=== PATIENT | female | born 1985 | race Caucasian/White ===

== ENCOUNTER 2016-07-19 20:06 | Emergency (ER) | payer OTHER ==
--- NOTE | 2016-07-19 21:24 | ED NURSING NOTES ---
Clinical Report - Nurses [facility] [address] [place] [address] 07/19/2016 20:06 Patient: LULU OCHOA TRIAGE Triage time 20:12. Acuity: LEVEL 4. Chief Complaint: MIGRAINE HEADACHE and VOMITING (Has hx of migraines; tried multiple interventions without sucess, says neurologist "wants to put Botox in the back on my head but my insurance won't cover it; they think the cause of my migraines are this cysts I have. I get about 1 a month and usually able to just fight through it and deal with but this one I can't; I went to the walk-in at [facility] but there was pretty much nothing they could do so now I am here." Aggravating factors include light, touch to my head; Alleviating factors: none. Migraine is on L side radiating to back, she describes "this is where my migraines typically are but this one hurts pretty good." Reports son is sick at home.). Alert. No acute distress. SEPSIS SCREEN: Sepsis Screen: negative. Negative (no infection suspected/documented). --20:19 Brijesh Moncada R.N. 20:12 07/19/16. BP: 156/91 (large adult cuff) taken on the left arm, via an automated monitor, while lying. HR: 80 (normal rate). RR: 18 (regular, unlabored and normal). O2 saturation: 98% on room air. Temp: 99.6 F (oral). Pain level now: 01/04. --20:19 Brijesh Moncada R.N. Weight: 154.2 kg stated. Height/Length: 66 inches Per Patient. BMI: 54.9. --20:15 Brijesh Moncada R.N. Medications None. --20:16 Brijesh Moncada R.N. Medication/allergy information source: the patient. --20:19 Brijesh Moncada R.N. Allergies Butalbital. Topamax.(itching) --20:16 Brijesh Moncada R.N. History Arrived by private vehicle. Historian: patient. Accompanied by spouse. Primary physician (Dr. Nguyen (neurologist)). This started about 4 days ago. She has had nausea, vomiting. The vomiting has occurred twice and photophobia. No sinus pain, chills, fever, sweating episodes or ear pain. No sore throat, chest pain or difficulty breathing. Denies muscle aches or poor appetite. PAST MEDICAL HX: Last normal menstrual period- July 12, 2016. SOCIAL HX: Smoker- current status unknown. Occasional alcohol use. History of occasional drug use: marijuana. Recently used drugs days ago. She has not traveled outside the [place] The patient was not exposed to MRSA. No infectious disease exposure. ABUSE ASSESSMENT: Abuse assessment: The patient was asked "Do you feel safe in your home?" and "Has anyone hurt you or threatened to hurt you?". No report of abuse. SELF HARM ASSESSMENT: A self harm assessment was performed. The patient answered "no" to the question "Do you have thoughts of harming or killing yourself?" and "Have you recently had thoughts about harming or killing others?". FALL RISK ASSESSMENT: Fall risk assessment completed. No fall risk identified. NUTRITIONAL RISK ASSESSMENT: The nutritional risk assessment revealed no deficiencies. FUNCTIONAL ASSESSMENT: Functional assessment: no impairments noted. LEARNING NEEDS ASSESSMENT: The learning needs assessment revealed no barriers. SKIN INTEGRITY ASSESSMENT: Skin integrity risk assessment completed. No skin integrity risk identified. --20:19 Brijesh Moncada R.N. PROBLEMS: Headache. URI. Pneumonia. Bronchitis. Respiratory Distress. Spontaneous (Miscarriage). . Abdominal Pain. Hypertension. Chronic Headache. Immunizations. LNMP - Last Normal Menstrual Period. Migraine Headache. --20:16 Brijesh Moncada R.N. ADDITIONAL SURGERIES: . --20:16 Brijesh Moncada R.N. Assessment GENERAL / NEURO / PSYCH: Alert. Oriented X 4. Appears in no acute distress. Deshawn Coma Scale: 15- eyes open spontaneously (4); best verbal response- oriented x 4 (5); best motor response- obeys commands (6). Patient appears calm and cooperative. RESPIRATORY: No respiratory distress. Respirations not labored. SKIN: Skin is warm and dry. --20:19 Brijesh Moncada R.N. Interventions ID band on patient. To treatment room. --20:19 Brijesh Moncada R.N. PHYSICAL ASSESSMENT Ambulatory to room. GENERAL / NEURO / PSYCH: Alert. Oriented X 4. Appears in no acute distress. Speech within normal limits. Pupillary exam: Right pupil 3mm, round and sluggishly reactive to light directly. Left pupil: 3mm, round and sluggishly reactive to light directly. HEENT: No facial asymmetry noted. Cerumen present in the right external auditory canal. Cerumen present in the left external auditory canal. (Could not visualize TMs.). No swelling of head. RESPIRATORY: No respiratory distress. Respirations not labored. Breath sounds within normal limits. CVS: Heart sounds within normal limits. Capillary refill less than 2 seconds. GI / : Obesity. Abdomen soft and nontender. SKIN: Skin is warm and dry. --20:22 Brijesh Moncada R.N. NURSING PROGRESS NOTES The initial plan of care for this patient has been created This plan of care was discussed with the patient. Reassurance given to the patient. Lights dimmed. Two patient identifiers checked. Call light placed in reach. Side rails up x 1. Bed placed in lowest position. Brakes of bed on. Patient ready for evaluation- ED physician and PA notified. --20:20 Brijesh Moncada R.N. Warming measures: blanket applied. --20:22 Brijesh Moncada R.N. 20:51 07/19/2016 Dilaudid (HYDROmorphone HCl PF) IM 2 mg given. Given in the left ventral gluteus. Allergies verified, confirmed 5 rights and sedative warning given to the patient. --20:51 Brijehs Moncada R.N. 20:52 07/19/2016 Phenergan (Promethazine HCl) IM 12.5 mg given. Given in the left ventral gluteus. Allergies verified, confirmed 5 rights and sedative warning given to the patient. --20:52 Brijesh Moncada R.N. 20:52 07/19/2016 Benadryl (DiphenhydrAMINE HCl) PO Capsules 25 mg given. Allergies verified, confirmed 5 rights and sedative warning given to the patient. --20:52 Brijesh Moncada R.N. DISPOSITION / DISCHARGE Departure time: 21:32. --21:32 Brijesh Moncada R.N. 21:33. Condition at departure: stable. The goals identified in the patient's plan of care were met. No learning barriers present. Discharge instructions provided and reviewed with the patient. Reviewed medication(s) side effects, precautions, dosing and course information. Prescription(s) given to the patient (Lulu verbalizes importance of taking all prescribed antibiotics. She verbalizes importance of not driving and/or operating heavy machinery while taking narcotics. She verbalizes safe, proper use of all prescribed pain meds for optimal pain management at home.). Activity restrictions (rest) reviewed. Patient verbalized understanding. Written instructions provided in Ukrainian. ( Lulu verbalizes understanding of all d/c instructions including need to keep wounds clean/dry and f/u with PCP for wound recheck. She has no questions and voices no concerns at this time.). The patient was discharged by the physician. She was discharged home and accompanied by parent. She left the Emergency Department ambulatory and via private vehicle. Parent driving. DESHAWN COMA SCORE: Deshawn Coma Scale: 15- eyes open spontaneously (4); best verbal response- oriented x 4 (5); best motor response- obeys commands (6). --22:08 Brijesh Moncada R.N. 21:30 07/19/16. BP: 147/92 (regular adult cuff) taken on the left arm, via an automated monitor, while sitting. HR: 71 (normal rate). RR: 16 (regular, unlabored and normal). O2 saturation: 100% on room air. Temp: 98.9 F (oral). Pain level now: 10/05. --22:08 Brijesh Moncada R.N. Locked/Released at 07/19/2016 22:09 by Brijesh Moncada R.N.
--- NOTE | 2016-07-19 21:24 | ED ORDER SUMMARY ---
..... Patient: HODA OCHOA OrderSheet [facility] VisitID: [id number] [address] [place] [address] 31y, F Registration Date/Time: 07/19/2016 ORDER SHEET Weight: 154.2 kg (stated) Allergies: Butalbital, Topamax GENERAL ORDERS: MEDICATION ORDERS: Dilaudid IM 2 mg (HIGH ALERT MEDICATION, NOW) (20:33 07/19/2016 Ra P.A.-C) (Ack 20:37 JDeElena R.N.) (20:51 JDeElena R.N.) Phenergan IM 12.5 mg (HIGH ALERT MEDICATION, NOW) (20:33 07/19/2016 Ra Lanza.A.-C) (Ack 20:37 JDeElena R.N.) (20:52 JDeElena R.N.) Benadryl PO 25 mg (NOW) (20:34 07/19/2016 Ra Lanaz.A.-C) (Ack 20:37 JDeElena R.N.) (20:52 JDeElena R.N.) IV FLUIDS: ORDER SHEET NOTES: [Electronically signed by Nadia Swift P.A.-C (21:38 07/19/2016)] [Electronically signed by Brijesh Moncada R.N. (22:09 07/19/2016)] [Electronically locked/signed by Brijesh Moncada R.N. (22:09 07/19/2016)]
--- NOTE | 2016-07-19 21:24 | ED CLINICAL REPORT ---
Clinical Report - Physicians/Mid Levels [facility] [address] [place] [address] 07/19/2016 20:06 Patient: HODA OCHOA Time Seen: 20:56 Jul 19 2016. Arrived- By private vehicle. HISTORY OF PRESENT ILLNESS Is still present. Chief Complaint: HEADACHE. This started just prior to arrival. It is described as similar to previous headaches, "pain" and throbbing. No neck pain. Not located in the facial region. Located in the occipital region. There were preceding symptoms. (Left posterior occipital headache, ongoing for the last 4-5 days, with associated nausea, light sensitivity. Reports has taken Excedrin, Motrin at all and Tylenol with no relief. History of similar migraine-like headaches, has seen neurology in the past, the thought was for her to have Botox, however her insurance will not cover for such.). REVIEW OF SYSTEMS No fever, ear pain, sore throat or abdominal pain. All systems otherwise negative, except as recorded above. PAST HISTORY History of chronic headaches. Problems: Headache. URI. Pneumonia. Bronchitis. Respiratory Distress. Spontaneous (Miscarriage). . Abdominal Pain. Hypertension. Chronic Headache. Immunizations. LNMP - Last Normal Menstrual Period. Migraine Headache. Additional Surgeries: . Medications: None. Allergies: Butalbital. Topamax.(itching). SOCIAL HISTORY Alcohol use. History of drug use: marijuana. ADDITIONAL NOTES The nursing notes have been reviewed. PHYSICAL EXAM Vital Signs: 07/19/2016 20:12 BP: 156/91. HR: 80. RR: 18. O2 saturation: 98%. Temp: 99.6 F. Pain level now: 7/10. Appearance: Alert. No acute distress. Neck: Normal inspection. No meningeal signs. CVS: Normal heart rate and rhythm. Heart sounds normal. No cardiac murmur. Respiratory: No respiratory distress. No respiratory distress. Back: Normal inspection. No CVA tenderness. Skin: Skin warm. Neuro: Oriented X 3. Mood/affect normal. Cranial nerves normal (as tested). No cerebellar findings. PROGRESS AND PROCEDURES Course of Care: pt stable in er, neuro exam negative, same ramsey she has had in the past with no new sx. Patient stable. To f/u outpatient. No neck pain, no meningeal signs/ sx. Ongoing pain for 5 days. Pt record reviwed. Patient is stable. Patient/family counseled. Differential Diagnosis: I considered vascular etiology, migraine, cluster headache, ischemic stroke, subarachnoid hemorrhage, intracranial bleed, cerebral aneurysm, vasculitis, malignant hypertension, bacterial meningitis, encephalitis, sinusitis, carbon monoxide exposure, trigeminal neuralgia, subdural hematoma, muscle tension and acute angle-closure glaucoma as a possible cause of headache in this patient. This is a partial list of diagnoses considered. Disposition: Discharged. CLINICAL IMPRESSION Chronic, poorly controlled headache. INSTRUCTIONS No alcohol. (DO NOT DRIVE). Warnings: SEDATIVE MEDICATION: You were given sedative medication during your visit. Do not drive or operate dangerous machinery. Follow-up: Follow up with a specialist. (Electronically signed by Nadia Swift P.A.-C 07/19/2016 21:38)
--- NOTE | 2016-07-19 21:24 | ED CLINICAL REPORT ---
Clinical Report - Physicians/Mid Levels [facility] [address] [place] [address] 07/19/2016 20:06 Patient: HODA OCHOA Time Seen: 20:56 Jul 19 2016. Arrived- By private vehicle. HISTORY OF PRESENT ILLNESS Is still present. Chief Complaint: HEADACHE. This started just prior to arrival. It is described as similar to previous headaches, "pain" and throbbing. No neck pain. Not located in the facial region. Located in the occipital region. There were preceding symptoms. (Left posterior occipital headache, ongoing for the last 4-5 days, with associated nausea, light sensitivity. Reports has taken Excedrin, Motrin at all and Tylenol with no relief. History of similar migraine-like headaches, has seen neurology in the past, the thought was for her to have Botox, however her insurance will not cover for such.). REVIEW OF SYSTEMS No fever, ear pain, sore throat or abdominal pain. All systems otherwise negative, except as recorded above. PAST HISTORY History of chronic headaches. Problems: Headache. URI. Pneumonia. Bronchitis. Respiratory Distress. Spontaneous (Miscarriage). . Abdominal Pain. Hypertension. Chronic Headache. Immunizations. LNMP - Last Normal Menstrual Period. Migraine Headache. Additional Surgeries: . Medications: None. Allergies: Butalbital. Topamax.(itching). SOCIAL HISTORY Alcohol use. History of drug use: marijuana. ADDITIONAL NOTES The nursing notes have been reviewed. PHYSICAL EXAM Vital Signs: 07/19/2016 20:12 BP: 156/91. HR: 80. RR: 18. O2 saturation: 98%. Temp: 99.6 F. Pain level now: 7/10. Appearance: Alert. No acute distress. Neck: Normal inspection. No meningeal signs. CVS: Normal heart rate and rhythm. Heart sounds normal. No cardiac murmur. Respiratory: No respiratory distress. No respiratory distress. Back: Normal inspection. No CVA tenderness. Skin: Skin warm. Neuro: Oriented X 3. Mood/affect normal. Cranial nerves normal (as tested). No cerebellar findings. PROGRESS AND PROCEDURES Course of Care: pt stable in er, neuro exam negative, same ramsey she has had in the past with no new sx. Patient stable. To f/u outpatient. No neck pain, no meningeal signs/ sx. Ongoing pain for 5 days. Pt record reviwed. Patient is stable. Patient/family counseled. Differential Diagnosis: I considered vascular etiology, migraine, cluster headache, ischemic stroke, subarachnoid hemorrhage, intracranial bleed, cerebral aneurysm, vasculitis, malignant hypertension, bacterial meningitis, encephalitis, sinusitis, carbon monoxide exposure, trigeminal neuralgia, subdural hematoma, muscle tension and acute angle-closure glaucoma as a possible cause of headache in this patient. This is a partial list of diagnoses considered. Disposition: Discharged. CLINICAL IMPRESSION Chronic, poorly controlled headache. INSTRUCTIONS No alcohol. (DO NOT DRIVE). Warnings: SEDATIVE MEDICATION: You were given sedative medication during your visit. Do not drive or operate dangerous machinery. Follow-up: Follow up with a specialist. (Electronically signed by Nadia Swift P.A.-C 07/19/2016 21:38)
--- NOTE | 2016-07-19 21:24 | ED ORDER SUMMARY ---
..... Patient: HODA OCHOA OrderSheet [facility] VisitID: [id number] [address] [place] [address] 31y, F Registration Date/Time: 07/19/2016 ORDER SHEET Weight: 154.2 kg (stated) Allergies: Butalbital, Topamax GENERAL ORDERS: MEDICATION ORDERS: Dilaudid IM 2 mg (HIGH ALERT MEDICATION, NOW) (20:33 07/19/2016 Ra P.A.-C) (Ack 20:37 JDeElena R.N.) (20:51 JDeElena R.N.) Phenergan IM 12.5 mg (HIGH ALERT MEDICATION, NOW) (20:33 07/19/2016 Ra Lanza.A.-C) (Ack 20:37 JDeElena R.N.) (20:52 JDeElena R.N.) Benadryl PO 25 mg (NOW) (20:34 07/19/2016 Ra Lanza.A.-C) (Ack 20:37 JDeElena R.N.) (20:52 JDeElena R.N.) IV FLUIDS: ORDER SHEET NOTES: [Electronically signed by Nadia Swift P.A.-C (21:38 07/19/2016)] [Electronically signed by Brijesh Moncada R.N. (22:09 07/19/2016)] [Electronically locked/signed by Brijesh Moncada R.N. (22:09 07/19/2016)]
--- NOTE | 2016-07-19 22:09 | ED DISCHARGE INSTRUCTIONS ---
Patient: HODA OCHOA General Instructions [facility] VisitID: [id number] [place] [address] 31y, F Registration Date/Time: 07/19/2016 Chronic, poorly controlled headache. INSTRUCTIONS No alcohol. (DO NOT DRIVE). Warnings: SEDATIVE MEDICATION: You were given sedative medication during your visit. Do not drive or operate dangerous machinery. Follow-up: Follow up with a specialist. ADDITIONAL INFORMATION Headache [Unspecified] The cause of your headache today is not clear, but it does not appear to be the sign of any serious illness. Under stress, some people tense the muscles of their shoulder, neck and scalp without knowing it. If this condition lasts long enough, a TENSION HEADACHE can occur. A MIGRAINE HEADACHE is caused by changes in blood flow to the brain. A migraine attack may be triggered by emotional stress, hormone changes during the menstrual cycle, oral contraceptives, alcohol use, certain foods containing tyramine, eye strain, weather changes, missing meals, lack of sleep or oversleeping. Other causes of headache include a viral illness with high fever, head injury with concussion, sinus, ear or throat infection, dental pain and TMJ (jaw joint) pain. More serious but less common causes of headache include stroke, brain hemorrhage, brain tumor, meningitis and encephalitis. Home Care: If you were given pain medicine for this headache, do not drive yourself home. Arrange for a ride, instead. When you get home, try to sleep. You should feel much better when you wake up. Apply heat to the back of your neck to relieve neck muscle spasm. Migraine headaches may respond best to an ice pack on the forehead or at the base of the skull. If you are having nausea or vomiting, follow a light diet until your headache is relieved. If you have a migraine type headache, use sunglasses when in the daylight or around bright indoor lighting until symptoms improve. Bright glaring light can worsen this kind of headache. Follow Up with your doctor if the headache is not better within the next 24 hours. If you have frequent headaches you should discuss a treatment plan with your primary care doctor. By being aware of the earliest signs of headache, and starting treatment right away, you may be able to stop the pain yourself. Get Prompt Medical Attention if any of the following occur: Worsening of your head pain or no improvement within 24 hours Repeated vomiting (unable to keep liquids down) Fever of 100.4F (38C) or higher, or as directed by your healthcare provider Stiff neck Extreme drowsiness, confusion or fainting Dizziness, vertigo (dizziness with spinning sensation) Weakness of an arm or leg or one side of the face Difficulty with speech or vision You have been given the following additional information: Headache, Unspecified (Electronically signed by Nadia Swift P.A.-C 07/19/2016 21:38)
--- NOTE | 2016-07-19 22:09 | ED MED RECONCILIATION SUMMARY ---
Patient: HODA OCHOA Medication Reconciliation Report [facility] VisitID: [id number] [address] [place] [address] 31y, F Registration Date/Time: 07/19/2016 Weight: 154.2 kg Height/Length: 66 in. BMI: 54.9 ALLERGIES: Butalbital, Topamax The patient's Home Medications are listed below: NONE. The source(s) of the original Home Medication information: patient The following Medications were given to the patient in the Emergency Department: Dilaudid [IM] IM 2 mg, administered: 07/19/2016 8:51:00 PM Phenergan [IM] IM 12.5 mg, administered: 07/19/2016 8:52:00 PM Benadryl [PO] PO 25 mg, administered: 07/19/2016 8:52:00 PM The following Medications were prescribed to the patient: None.
--- NOTE | 2016-07-19 22:09 | ED MAR SUMMARY ---
..... Medication Administration Record [facility] [address] [place] [address] Patient: HODA OCHOA Visit ID: [id number] 31y, F Weight: 154.2 kg Height/Length: 66 in BMI: 54.9 ALLERGIES: Butalbital, Topamax Given 20:51 07/19/2016 Brijesh Moncada RIsabel Medication Administered: DILAUDID [IM] (HYDROMORPHONE HCL PF), Dose: 2 mg IM. Medication Ordered: Dilaudid IM 2 mg (HIGH ALERT MEDICATION, NOW). Given 20:52 07/19/2016 Brijesh Moncada RKiritNKirit Medication Administered: PHENERGAN [IM] (PROMETHAZINE HCL), Dose: 12.5 mg IM. Medication Ordered: Phenergan IM 12.5 mg (HIGH ALERT MEDICATION, NOW). Given 20:52 07/19/2016 Brijesh Moncada RKiritN. Medication Administered: BENADRYL [PO] (DIPHENHYDRAMINE HCL), Dose: 25 mg Capsules PO. Medication Ordered: Benadryl PO 25 mg (NOW).
--- NOTE | 2016-07-19 22:09 | ED MED RECONCILIATION SUMMARY ---
Patient: HODA OCHOA Medication Reconciliation Report [facility] VisitID: [id number] [address] [place] [address] 31y, F Registration Date/Time: 07/19/2016 Weight: 154.2 kg Height/Length: 66 in. BMI: 54.9 ALLERGIES: Butalbital, Topamax The patient's Home Medications are listed below: NONE. The source(s) of the original Home Medication information: patient The following Medications were given to the patient in the Emergency Department: Dilaudid [IM] IM 2 mg, administered: 07/19/2016 8:51:00 PM Phenergan [IM] IM 12.5 mg, administered: 07/19/2016 8:52:00 PM Benadryl [PO] PO 25 mg, administered: 07/19/2016 8:52:00 PM The following Medications were prescribed to the patient: None.
--- NOTE | 2016-07-19 22:09 | ED MAR SUMMARY ---
..... Medication Administration Record [facility] [address] [place] [address] Patient: HODA OCHOA Visit ID: [id number] 31y, F Weight: 154.2 kg Height/Length: 66 in BMI: 54.9 ALLERGIES: Butalbital, Topamax Given 20:51 07/19/2016 Brijesh Moncada RIsabel Medication Administered: DILAUDID [IM] (HYDROMORPHONE HCL PF), Dose: 2 mg IM. Medication Ordered: Dilaudid IM 2 mg (HIGH ALERT MEDICATION, NOW). Given 20:52 07/19/2016 Brijesh Moncada RKiritNKirit Medication Administered: PHENERGAN [IM] (PROMETHAZINE HCL), Dose: 12.5 mg IM. Medication Ordered: Phenergan IM 12.5 mg (HIGH ALERT MEDICATION, NOW). Given 20:52 07/19/2016 Brijesh Moncada RKiritN. Medication Administered: BENADRYL [PO] (DIPHENHYDRAMINE HCL), Dose: 25 mg Capsules PO. Medication Ordered: Benadryl PO 25 mg (NOW).
== END 2016-07-19 21:33 | disposition home or self-care (01) ==
LOC: ED SRH 20:06
DX: R51 Headache (principal); R11.0 Nausea; I10 Essential (primary) hypertension; Z88.8 Allergy status to other drugs, medicaments and biological substances

== ENCOUNTER 2016-11-04 20:50 | Emergency (ER) | payer OTHER ==
--- NOTE | 2016-11-04 23:45 | DIAGNOSTIC IMAGING REPORT ---
PROCEDURE: US 2ND TRIMESTER INDICATION: PAIN TECHNIQUE: Krishnan scale, color, and spectral Doppler images of the second trimester gravid uterus were obtained. COMPARISON: None. FINDINGS: Early viable intrauterine and right and transverse position with cardiac activity (140). [place]-rump length 10.6 cm (16.3 weeks). Placenta is posterior fundal. No evidence of previa or abruption. Normal fluid and cervix length (3.1 cm). IMPRESSION: 1. Early viable intrauterine at 16.3 weeks menstrual age (plus or minus 1 week). MONTSERRAT is 04/18/2017. 2. No evidence of previa or abruption.
--- NOTE | 2016-11-05 01:10 | ED CLINICAL REPORT ---
Clinical Report - Physicians/Mid Levels [facility] [address] [place] [address] 11/04/2016 20:51 Patient: HODA OCHOA Time Seen: 21:13; initial patient contact. HISTORY OF PRESENT ILLNESS Chief Complaint: VAGINAL BLEEDING. This started just prior to arrival and now gone. It was abrupt in onset. The symptoms are described as mild. Modifying factors. Not worsened by anything. Not relieved by anything. The patient has had mild, crampy right-sided, suprapubic and left-sided pelvic pain. No abdominal pain, vaginal pain, low back pain, flank pain or pain with urination. No urinary frequency, urgency of urination or hematuria. Currently . Receiving care. Similar symptoms previously: None. Recent medical care: Not recently seen/assessed. REVIEW OF SYSTEMS The patient has had nausea. No vomiting, diarrhea, fever or chills. All systems otherwise negative, except as recorded above. PAST HISTORY ( Headache. URI. Pneumonia. Bronchitis. Respiratory Distress. Spontaneous (Miscarriage). . Abdominal Pain. Hypertension. Chronic Headache. Immunizations. LNMP - Last Normal Menstrual Period. Migraine Headache. ADDITIONAL SURGERIES: ). SOCIAL HISTORY No alcohol use or drug use. ADDITIONAL NOTES The nursing notes have been reviewed. PHYSICAL EXAM Vital Signs: 11/04/2016 21:11 BP: 155/85. HR: 90. RR: 18. O2 saturation: 98%. Temp: 98.6 F. Pain level now: 09/04. Have been reviewed. Hypertensive. Heart rate normal. Respiratory rate normal. Temperature normal. Oxygen saturation normal. Appearance: Alert. Oriented X3. HEENT: Normal external inspection. ENT: Pharynx normal. CVS: Heart sounds normal. Rate normal. Rhythm normal. Respiratory: No respiratory distress. Breath sounds normal. Abdomen: Soft. Mild tenderness in the suprapubic area. No guarding or rebound tenderness. Bowel sounds normal. No organomegaly. No mass. : External inspection normal. Speculum exam normal. Bimanual exam normal. (Female DONALD Parker present for exam). Skin: Normal skin color. Neuro: Oriented X 3. LABS, X-RAYS, AND EKG Pelvic Sonogram: 1. Early viable intrauterine at 16.3 weeks menstrual age (plus or minus 1 week). MONTSERRAT is 04/18/2017. 2. No evidence of previa or abruption. The study was interpreted by the radiologist and discussed with the radiologist. Prior studies were not available for comparison. Laboratory Tests: UA-Culture if indicated: (ANAY: 11/04/2016 21:15) ( [facility] [place] 11/04/2016 22:27) Final results Test Result Flag Units (Reference) URINE COLOR YELLOW URINE APPEARANCE CLEAR URINE GLUCOSE NEGATIVE (NEGATIVE) URINE BILIRUBIN NEGATIVE (NEGATIVE) URINE KETONE NEGATIVE (NEGATIVE) URINE SPECIFIC GRAVITY >= 1.030 (1.010-1.030) URINE PH 5.5 (5.0-8.0) URINE PROTEIN NEGATIVE (NEGATIVE) URINE UROBILINOGEN 0.2 EU/dL (0.2-1.0) URINE NITRITE NEGATIVE (NEGATIVE) URINE BLOOD NEGATIVE (NEGATIVE) URINE LEUK ESTERASE NEGATIVE (NEGATIVE) URINE RBC NONE SEEN rbc/hpf (0-1) URINE WBC RARE wbc/hpf (0-1) URINE EPITHELIAL CELLS 0-1 EPI/hpf (0-5) URINE BACTERIA TRACE (<1+) (NONE SEEN) URINE COMMENT CULT NOT INDICATED 25-50 CALCIUM OXALATE CRYSTALS. RARE SODIUM URATE CRYSTALS.URINE CULTURES ARE SET-UP BASED ON THE FOLLOWING CRITERIA:POSITIVE NITRITEPOSITIVE LEUKOCYTE ESTERASEGREATER THAN 10 WHITE BLOOD CELLSMODERATE (2+) OR GREATER BACTERIA CBC w Diff: (AANY: 11/04/2016 22:31) ( [facility] [place] 11/04/2016 22:44) Final results Test Result Flag Units (Reference) WHITE BLOOD COUNT 9.9 K/uL (4.5-11.5) RED BLOOD COUNT 4.18 M/uL (4.00-5.20) HEMOGLOBIN 11.6 L gm/dL (12.0-16.0) HEMATOCRIT 34.3 L % (36.0-46.0) MEAN CELL VOLUME 82 fL (80-100) MEAN CORPUSCULAR HGB 28 pg (26-34) MEAN CORPUSCULAR HGB CONC 34 g/dL (31-37) RED CELL DISTRIBUTION WIDTH 14.3 % (11.6-14.8) PLATELET COUNT 220 K/uL (150-400) NEUTROPHIL % 63.8 % (50-75) LYMPH % 28.9 % (25-40) MONO % 5.3 % (3-14) EOSINOPHIL % 0.9 % (0-4) BASOPHIL % 1.1 % (0-2) CMP: (ANAY: 11/04/2016 22:31) ( Msg[facility]cv[facility] 11/05/2016 00:04) Final results Test Result Flag Units (Reference) GLUCOSE 104 mg/dL (70-110) BUN 9 mg/dL (7-18) CREATININE 0.7 mg/dL (0.6-1.3) Estimated GFR >60 mL/min Estimated GFR- >60 mL/min Note: Persistent reduction over 3 months in eGFR<60 mL/min/1.73 m2 defines CKD. Patients with eGFR values>=60 mL/min/1.73 m2 may also have CKD if evidence ofpersistent proteinuria. Additional information may be foundat www.kidney.org. SODIUM 141 mmol/L (136-145) POTASSIUM 3.7 mmol/L (3.5-5.1) CHLORIDE 104 mmol/L (98-107) CARBON DIOXIDE 25 mmol/L (21-32) CALCIUM 9.4 mg/dL (8.5-10.1) TOTAL PROTEIN 6.9 g/dL (6.4-8.2) ALBUMIN 3.0 L g/dL (3.3-5.0) BILIRUBIN, TOTAL 0.3 mg/dL (0.0-1.0) ALKALINE PHOSPHATASE 83 U/L (46-116) AST (SGOT) 22 U/L (15-37) ALT (SGPT) 49 U/L (12-78) BETA HCG, QUANTITATIVE 42661 mIU/mL REFERENCE RANGE:Adult Males: <2 mIU/mLNon- Females: <6 mIU/mL Females:Approximate Approximate hCGGestational Age Range (mIU/mL) 0-1 week 0-501-2 weeks 40-3002-3 weeks 100-53351-3 weeks 500-76411-2 months 5,000-200,0002-3 months 10,000-100,0002nd trimester 3,000-50,0003rd trimester 1,000-50,000 Wet Prep: (ANAY: 11/05/2016 00:17) ( [facility] 11/05/2016 00:56) Final results SPECIMEN DESCRIPTION: ... Test Result Flag Units (Reference) WET MOUNT CLUE CELLS:: NONE EPITHELIAL CELLS: FEW -- SOURCE?: CERVIX WHITE BLOOD CELLS: RARE TRICHOMONAS:: NONE -- YEAST:: NONE Type & Rh: (ANAY: 11/04/2016 22:31) [place] [facility] [place] 22:53[place] Final results Test Result Flag Units (Reference) PATIENT BLOOD TYPE O Positive . PROGRESS AND PROCEDURES Disposition: Discharged home in good condition. Condition: good. CLINICAL IMPRESSION Mild chronic anemia. Mild vaginal bleeding. Ultrasound was not performed to determine location because the patient had a previously documented intrauterine . No menorrhagia or metrorrhagia. INSTRUCTIONS Follow-up: Follow up with your doctor in about two days. Call for an appointment. Screening today revealed the patient's blood pressure to be in the hypertensive range. The patient should follow up with a primary care provider for blood pressure management. (Electronically signed by Gerald Irvin Dr. 11/05/2016 4:09)
--- NOTE | 2016-11-05 01:10 | ED NURSING NOTES ---
Clinical Report - Nurses [facility] [address] [place] [address] 11/04/2016 20:51 Patient: HODA OCHOA TRIAGE Triage time 21:10. Acuity: LEVEL 3. Chief Complaint: ABDOMINAL PAIN and CRAMPS. --21:23 Kiya Burgess R.N. 21:11 11/04/16. BP: 155/85 (large adult cuff) taken on the left arm, while lying. HR: 90 (regular and normal rate). RR: 18. O2 saturation: 98% on room air. Temp: 98.6 F (oral). Pain level now: 09/04. --21:23 Kiya Burgess R.N. Weight: 155.5 kg stated. Height/Length: 65 inches Per Patient. BMI: 57.1. --21:11 Kiya Burgess R.N. Medications Aspirin Oral (Tablet 81 mg) 1 tablet, daily. --21:17 Kiya Burgess R.N. Plus Oral 1 tablet, daily. --21:18 Kiya Burgess R.N. Zofran ODT Oral 4 mg, as needed. --21:18 Kiya Burgess R.N. Tylenol Oral (Tablet 325 mg) 1 tablet, as needed. --21:18 Kiya Burgess R.N. Allergies Topiramate. Definite Severe(rash) --21:19 Kiya Burgess R.N. Butalbital. Definite Severe(rash) --21:19 Kiya Burgess R.N. History Arrived by private vehicle. Historian: patient. Unaccompanied. Primary physician (drake). This started today. Onset was abrupt. Symptoms gone now (started this morning). ( pt reports bright red gush of blood this AM then nothing and then started cramping around 4pm this afternoon off and on). No vomiting, fever or swelling. Treatment CUSTOMER SERVICE ANALYST: None. PAST MEDICAL HX: Last normal menstrual period- Jun 2016. 6. Para 2. Confirmed : LNMP: about Jun 2016. In 2nd trimester. confirmed with sonogram. Has had care by project product manager. G 6. P 2. SOCIAL HX: Smoker- current status unknown. History of drug use: marijuana. (in 2016). No alcohol use. ABUSE ASSESSMENT: No report of abuse. SELF HARM ASSESSMENT: A self harm assessment was performed. The patient answered "no" to the question "Have you recently felt down, depressed, or hopeless?", "Have you noticed less interest or pleasure in doing things?", "Do you have thoughts of harming or killing yourself?", "Are you here because you tried to hurt yourself?", "Have you ever tried to hurt yourself before today?", "Have you recently had thoughts about harming or killing others?" and "Do you have any dangerous items in your possession?". --21:23 Kiya Burgess R.N. PROBLEMS: Headache. URI. Pneumonia. Bronchitis. Respiratory Distress. Spontaneous (Miscarriage). . Abdominal Pain. Hypertension. Chronic Headache. Immunizations. LNMP - Last Normal Menstrual Period. Migraine Headache. --21:19 Kiya Burgess R.N. ADDITIONAL SURGERIES: . --21:19 Kiya Burgess R.N. Interventions ID band on patient. --21:23 Kiya Burgess R.N. PHYSICAL ASSESSMENT Ambulatory to room. GENERAL / NEURO / PSYCH: Alert. Oriented X 4. Appears in no acute distress. HEENT: Mucous membranes are pink. RESPIRATORY: Respirations not labored. Breath sounds within normal limits. CVS: Normal heart rate and rhythm. Capillary refill less than 2 seconds. GI / : Abdomen soft and nontender. Bowel sounds within normal limits. No vaginal bleeding. No vaginal discharge. EXTREMITIES: No lower extremity edema. SKIN: Skin is warm and dry. --21:23 Kiya Burgess R.N. NURSING PROGRESS NOTES Two patient identifiers checked. Call light placed in reach. Side rails up x 1. Bed placed in lowest position. Brakes of bed on. --21:23 Kiya Burgess R.N. Patient ready for evaluation- chart flagged. --21:23 Kiya Burgess R.N. ( Ultrasound at bedside). --22:05 Dorcas Livingston 22:30 11/04/2016 Site #1 started via IV in the right antecubital space with an 22g angiocath, with aseptic technique and good blood return; one attempt. Blood drawn: rainbow set. Labeled in the presence of the patient and sent to the lab. Saline lock flushed with 10 mL saline. --22:34 Kiya Burgess R.N. 22:31 11/04/2016 Started bag #1 1000 mL IV Fluids IV NS (Saline); bolus of 1000 mL wide open then over 1 hour(s) via site #1. Allergies verified and confirmed 5 rights. IV patency established. IV site checked: no pain, redness, or swelling. IV flushed thoroughly pre- and post-medication administration. --:34 Kiya Burgess R.N. 00:25 11/05/2016 IV Fluids IV NS Discontinued: bag #1 completed. Total amount infused: 1000 mL. IV patency established. IV site checked: no pain, redness, or swelling. IV flushed thoroughly. --00:25 Kiya Burgess R.N. Wireless Field Technician provided for the general exam by the physician. PELVIC EXAM: Pelvic exam performed by ED physician (Albaro). Assisted by one nurse (pollo). Preparation: pelvic tray and culture medium. Procedure: speculum and bimanual exam. Specimens collected and sent to lab: GC, chlamydia and wet prep. Status post-procedure: she was stable and no complications were noted. Total time of assist / procedure: 15 minutes. --00:27 Kiya Burgess R.N. 00:25 11/05/16. BP: 142/76 (regular adult cuff) taken on the left arm, while lying. HR: 79 (regular and normal rate). RR: 18. O2 saturation: 99%. Temp: deferred. Pain level now: 0/10. --00:27 Kiya Burgess R.N. DISPOSITION / DISCHARGE 01:15 11/05/2016 Site #1 removed upon discharge. Catheter intact. Manual pressure and bandage applied. --01:25 Kiya Burgess R.N. Departure time: 0115. Condition at departure: improved. No learning barriers present. Discharge instructions provided and reviewed with the patient. Patient verbalized understanding. Written instructions provided in Syriac. The patient was discharged home and unaccompanied at time of discharge. She left the Emergency Department ambulatory and via private vehicle. Patient driving. --01:25 Kiya Burgess R.N. 01:15 11/05/16. BP: 138/74. HR: 99 (regular and normal rate). RR: 18. O2 saturation: 100% on room air. Temp: deferred. Pain level now: 0/10. --01:25 Kiya Burgess R.N. Locked/Released at 11/05/2016 1:26 by Kiya Burgess R.N.
--- NOTE | 2016-11-05 01:10 | ED ORDER SUMMARY ---
..... Patient: HODA OCHOA OrderSheet [facility] VisitID: [id number] [address] [place] [address] 31y, F Registration Date/Time: 11/04/2016 ORDER SHEET Weight: 155.5 kg (stated) Allergies: Topiramate, Butalbital GENERAL ORDERS: US OB 2nd Trimester (?) Urgent (21:41 11/04/2016 Daylin Lawrence) (Ack 21:44 AMcQuoid ER Tech1) (22:17 CBradburn R.N.) CBC w Diff Urgent (21:42 11/04/2016 Daylin Lawrence) (Ack 21:44 AMcQuoid ER Tech1) (22:33 CBradpreston R.N.) CMP Urgent (21:42 11/04/2016 Daylin Lawrence) (Ack 21:44 TigreQuoid ER Tech1) (22:33 Corey R.N.) UA-Culture if indicated Urgent (21:42 11/04/2016 Daylin Lawrence) (Ack 21:44 AMcQuoid ER Tech1) (23:25 CBradburn R.N.) Type & Rh Urgent (21:42 11/04/2016 Daylin Lawrence) (Ack 21:44 AMcQuoid ER Tech1) (22:33 CBradburn R.N.) Serum Quantitative Urgent (21:42 11/04/2016 Daylin Lawrence) (Ack 21:44 AMcQuoid ER Tech1) (23:16 JESUSradburn R.N.) GC/Chlamydia (Cervix) (...) Urgent (00:25 11/05/2016 Daylin Lawrence) (0:25 JESUSradburn R.N.) Wet Prep (Cervix) (...) Urgent (00:25 11/05/2016 Daylin Lawrence) (0:25 JESUSradburn R.N.) MEDICATION ORDERS: IV FLUIDS: IV NS : initial bolus none -, then 1000 mL/hr for X1 (NOW) (21:40 11/04/2016 Daylin Lawrence) (Ack 21:56 HSoule) (22:34 CBradpreston R.N.) ORDER SHEET NOTES: [Electronically signed by Kiya Burgess R.N. (11/05/2016)] [Electronically signed by Gerald Irvin Dr. (04:09 11/05/2016)] [Electronically locked/signed by Kiya Burgess R.N. (11/05/2016)]
--- NOTE | 2016-11-05 01:10 | ED ORDER SUMMARY ---
..... Patient: HODA OCHOA OrderSheet [facility] VisitID: [id number] [address] [place] [address] 31y, F Registration Date/Time: 11/04/2016 ORDER SHEET Weight: 155.5 kg (stated) Allergies: Topiramate, Butalbital GENERAL ORDERS: US OB 2nd Trimester (?) Urgent (21:41 11/04/2016 Daylin Lawrence) (Ack 21:44 AMcQuoid ER Tech1) (22:17 CBradburn R.N.) CBC w Diff Urgent (21:42 11/04/2016 Daylin Lawrence) (Ack 21:44 AMcQuoid ER Tech1) (22:33 CBradpreston R.N.) CMP Urgent (21:42 11/04/2016 Daylin Lawrence) (Ack 21:44 TigreQuoid ER Tech1) (22:33 Corey R.N.) UA-Culture if indicated Urgent (21:42 11/04/2016 Daylin Lawrence) (Ack 21:44 AMcQuoid ER Tech1) (23:25 CBradburn R.N.) Type & Rh Urgent (21:42 11/04/2016 Daylin Lawrence) (Ack 21:44 AMcQuoid ER Tech1) (22:33 CBradburn R.N.) Serum Quantitative Urgent (21:42 11/04/2016 Daylin Lawrence) (Ack 21:44 AMcQuoid ER Tech1) (23:16 JESUSradburn R.N.) GC/Chlamydia (Cervix) (...) Urgent (00:25 11/05/2016 Daylin Lawrence) (0:25 JESUSradburn R.N.) Wet Prep (Cervix) (...) Urgent (00:25 11/05/2016 Daylin Lawrence) (0:25 JESUSradburn R.N.) MEDICATION ORDERS: IV FLUIDS: IV NS : initial bolus none -, then 1000 mL/hr for X1 (NOW) (21:40 11/04/2016 Daylin Lawrence) (Ack 21:56 HSoule) (22:34 CBradpreston R.N.) ORDER SHEET NOTES: [Electronically signed by Kiya Burgess R.N. (11/05/2016)] [Electronically signed by Gerald Irvin Dr. (04:09 11/05/2016)] [Electronically locked/signed by Kiya Burgess R.N. (11/05/2016)]
--- NOTE | 2016-11-05 01:10 | ED NURSING NOTES ---
Clinical Report - Nurses [facility] [address] [place] [address] 11/04/2016 20:51 Patient: HODA OCHOA TRIAGE Triage time 21:10. Acuity: LEVEL 3. Chief Complaint: ABDOMINAL PAIN and CRAMPS. --21:23 Kiya Burgess R.N. 21:11 11/04/16. BP: 155/85 (large adult cuff) taken on the left arm, while lying. HR: 90 (regular and normal rate). RR: 18. O2 saturation: 98% on room air. Temp: 98.6 F (oral). Pain level now: 09/04. --21:23 Kiya Burgess R.N. Weight: 155.5 kg stated. Height/Length: 65 inches Per Patient. BMI: 57.1. --21:11 Kiya Burgess R.N. Medications Aspirin Oral (Tablet 81 mg) 1 tablet, daily. --21:17 Kiya Burgess R.N. Plus Oral 1 tablet, daily. --21:18 Kiya Burgess R.N. Zofran ODT Oral 4 mg, as needed. --21:18 Kiya Burgess R.N. Tylenol Oral (Tablet 325 mg) 1 tablet, as needed. --21:18 Kiya Burgess R.N. Allergies Topiramate. Definite Severe(rash) --21:19 Kiya Burgess R.N. Butalbital. Definite Severe(rash) --21:19 Kiya Burgess R.N. History Arrived by private vehicle. Historian: patient. Unaccompanied. Primary physician (drake). This started today. Onset was abrupt. Symptoms gone now (started this morning). ( pt reports bright red gush of blood this AM then nothing and then started cramping around 4pm this afternoon off and on). No vomiting, fever or swelling. Treatment CHANNEL OPENER OUTSOLES: None. PAST MEDICAL HX: Last normal menstrual period- Jun 2016. 6. Para 2. Confirmed : LNMP: about Jun 2016. In 2nd trimester. confirmed with sonogram. Has had care by scratch brusher. G 6. P 2. SOCIAL HX: Smoker- current status unknown. History of drug use: marijuana. (in 2016). No alcohol use. ABUSE ASSESSMENT: No report of abuse. SELF HARM ASSESSMENT: A self harm assessment was performed. The patient answered "no" to the question "Have you recently felt down, depressed, or hopeless?", "Have you noticed less interest or pleasure in doing things?", "Do you have thoughts of harming or killing yourself?", "Are you here because you tried to hurt yourself?", "Have you ever tried to hurt yourself before today?", "Have you recently had thoughts about harming or killing others?" and "Do you have any dangerous items in your possession?". --21:23 Kiya Burgess R.N. PROBLEMS: Headache. URI. Pneumonia. Bronchitis. Respiratory Distress. Spontaneous (Miscarriage). . Abdominal Pain. Hypertension. Chronic Headache. Immunizations. LNMP - Last Normal Menstrual Period. Migraine Headache. --21:19 Kiya Burgess R.N. ADDITIONAL SURGERIES: . --21:19 Kiya Burgess R.N. Interventions ID band on patient. --21:23 Kiya Burgess R.N. PHYSICAL ASSESSMENT Ambulatory to room. GENERAL / NEURO / PSYCH: Alert. Oriented X 4. Appears in no acute distress. HEENT: Mucous membranes are pink. RESPIRATORY: Respirations not labored. Breath sounds within normal limits. CVS: Normal heart rate and rhythm. Capillary refill less than 2 seconds. GI / : Abdomen soft and nontender. Bowel sounds within normal limits. No vaginal bleeding. No vaginal discharge. EXTREMITIES: No lower extremity edema. SKIN: Skin is warm and dry. --21:23 Kiya Burgess R.N. NURSING PROGRESS NOTES Two patient identifiers checked. Call light placed in reach. Side rails up x 1. Bed placed in lowest position. Brakes of bed on. --21:23 Kiya Burgess R.N. Patient ready for evaluation- chart flagged. --21:23 Kiya Burgess R.N. ( Ultrasound at bedside). --22:05 Dorcas Livingston 22:30 11/04/2016 Site #1 started via IV in the right antecubital space with an 22g angiocath, with aseptic technique and good blood return; one attempt. Blood drawn: rainbow set. Labeled in the presence of the patient and sent to the lab. Saline lock flushed with 10 mL saline. --22:34 Kiya Burgess R.N. 22:31 11/04/2016 Started bag #1 1000 mL IV Fluids IV NS (Saline); bolus of 1000 mL wide open then over 1 hour(s) via site #1. Allergies verified and confirmed 5 rights. IV patency established. IV site checked: no pain, redness, or swelling. IV flushed thoroughly pre- and post-medication administration. --:34 Kiya Burgess R.N. 00:25 11/05/2016 IV Fluids IV NS Discontinued: bag #1 completed. Total amount infused: 1000 mL. IV patency established. IV site checked: no pain, redness, or swelling. IV flushed thoroughly. --00:25 Kiya Burgess R.N. Training Director provided for the general exam by the physician. PELVIC EXAM: Pelvic exam performed by ED physician (Albaro). Assisted by one nurse (pollo). Preparation: pelvic tray and culture medium. Procedure: speculum and bimanual exam. Specimens collected and sent to lab: GC, chlamydia and wet prep. Status post-procedure: she was stable and no complications were noted. Total time of assist / procedure: 15 minutes. --00:27 Kiya Burgess R.N. 00:25 11/05/16. BP: 142/76 (regular adult cuff) taken on the left arm, while lying. HR: 79 (regular and normal rate). RR: 18. O2 saturation: 99%. Temp: deferred. Pain level now: 0/10. --00:27 Kiya Burgess R.N. DISPOSITION / DISCHARGE 01:15 11/05/2016 Site #1 removed upon discharge. Catheter intact. Manual pressure and bandage applied. --01:25 Kiya Burgess R.N. Departure time: 0115. Condition at departure: improved. No learning barriers present. Discharge instructions provided and reviewed with the patient. Patient verbalized understanding. Written instructions provided in Latvian. The patient was discharged home and unaccompanied at time of discharge. She left the Emergency Department ambulatory and via private vehicle. Patient driving. --01:25 Kiya Burgess R.N. 01:15 11/05/16. BP: 138/74. HR: 99 (regular and normal rate). RR: 18. O2 saturation: 100% on room air. Temp: deferred. Pain level now: 0/10. --01:25 Kiya Burgess R.N. Locked/Released at 11/05/2016 1:26 by Kiya Burgess R.N.
--- NOTE | 2016-11-05 01:10 | ED CLINICAL REPORT ---
Clinical Report - Physicians/Mid Levels [facility] [address] [place] [address] 11/04/2016 20:51 Patient: HODA OCHOA Time Seen: 21:13; initial patient contact. HISTORY OF PRESENT ILLNESS Chief Complaint: VAGINAL BLEEDING. This started just prior to arrival and now gone. It was abrupt in onset. The symptoms are described as mild. Modifying factors. Not worsened by anything. Not relieved by anything. The patient has had mild, crampy right-sided, suprapubic and left-sided pelvic pain. No abdominal pain, vaginal pain, low back pain, flank pain or pain with urination. No urinary frequency, urgency of urination or hematuria. Currently . Receiving care. Similar symptoms previously: None. Recent medical care: Not recently seen/assessed. REVIEW OF SYSTEMS The patient has had nausea. No vomiting, diarrhea, fever or chills. All systems otherwise negative, except as recorded above. PAST HISTORY ( Headache. URI. Pneumonia. Bronchitis. Respiratory Distress. Spontaneous (Miscarriage). . Abdominal Pain. Hypertension. Chronic Headache. Immunizations. LNMP - Last Normal Menstrual Period. Migraine Headache. ADDITIONAL SURGERIES: ). SOCIAL HISTORY No alcohol use or drug use. ADDITIONAL NOTES The nursing notes have been reviewed. PHYSICAL EXAM Vital Signs: 11/04/2016 21:11 BP: 155/85. HR: 90. RR: 18. O2 saturation: 98%. Temp: 98.6 F. Pain level now: 09/04. Have been reviewed. Hypertensive. Heart rate normal. Respiratory rate normal. Temperature normal. Oxygen saturation normal. Appearance: Alert. Oriented X3. HEENT: Normal external inspection. ENT: Pharynx normal. CVS: Heart sounds normal. Rate normal. Rhythm normal. Respiratory: No respiratory distress. Breath sounds normal. Abdomen: Soft. Mild tenderness in the suprapubic area. No guarding or rebound tenderness. Bowel sounds normal. No organomegaly. No mass. : External inspection normal. Speculum exam normal. Bimanual exam normal. (Female DONALD Parker present for exam). Skin: Normal skin color. Neuro: Oriented X 3. LABS, X-RAYS, AND EKG Pelvic Sonogram: 1. Early viable intrauterine at 16.3 weeks menstrual age (plus or minus 1 week). MONTSERRAT is 04/18/2017. 2. No evidence of previa or abruption. The study was interpreted by the radiologist and discussed with the radiologist. Prior studies were not available for comparison. Laboratory Tests: UA-Culture if indicated: (ANAY: 11/04/2016 21:15) ( [facility] [place] 11/04/2016 22:27) Final results Test Result Flag Units (Reference) URINE COLOR YELLOW URINE APPEARANCE CLEAR URINE GLUCOSE NEGATIVE (NEGATIVE) URINE BILIRUBIN NEGATIVE (NEGATIVE) URINE KETONE NEGATIVE (NEGATIVE) URINE SPECIFIC GRAVITY >= 1.030 (1.010-1.030) URINE PH 5.5 (5.0-8.0) URINE PROTEIN NEGATIVE (NEGATIVE) URINE UROBILINOGEN 0.2 EU/dL (0.2-1.0) URINE NITRITE NEGATIVE (NEGATIVE) URINE BLOOD NEGATIVE (NEGATIVE) URINE LEUK ESTERASE NEGATIVE (NEGATIVE) URINE RBC NONE SEEN rbc/hpf (0-1) URINE WBC RARE wbc/hpf (0-1) URINE EPITHELIAL CELLS 0-1 EPI/hpf (0-5) URINE BACTERIA TRACE (<1+) (NONE SEEN) URINE COMMENT CULT NOT INDICATED 25-50 CALCIUM OXALATE CRYSTALS. RARE SODIUM URATE CRYSTALS.URINE CULTURES ARE SET-UP BASED ON THE FOLLOWING CRITERIA:POSITIVE NITRITEPOSITIVE LEUKOCYTE ESTERASEGREATER THAN 10 WHITE BLOOD CELLSMODERATE (2+) OR GREATER BACTERIA CBC w Diff: (ANAY: 11/04/2016 22:31) ( [facility] 11/04/2016 22:44) Final results Test Result Flag Units (Reference) WHITE BLOOD COUNT 9.9 K/uL (4.5-11.5) RED BLOOD COUNT 4.18 M/uL (4.00-5.20) HEMOGLOBIN 11.6 L gm/dL (12.0-16.0) HEMATOCRIT 34.3 L % (36.0-46.0) MEAN CELL VOLUME 82 fL (80-100) MEAN CORPUSCULAR HGB 28 pg (26-34) MEAN CORPUSCULAR HGB CONC 34 g/dL (31-37) RED CELL DISTRIBUTION WIDTH 14.3 % (11.6-14.8) PLATELET COUNT 220 K/uL (150-400) NEUTROPHIL % 63.8 % (50-75) LYMPH % 28.9 % (25-40) MONO % 5.3 % (3-14) EOSINOPHIL % 0.9 % (0-4) BASOPHIL % 1.1 % (0-2) CMP: (ANAY: 11/04/2016 22:31) ( Msg[facility]cvd 11/05/2016 00:04) Final results Test Result Flag Units (Reference) GLUCOSE 104 mg/dL (70-110) BUN 9 mg/dL (7-18) CREATININE 0.7 mg/dL (0.6-1.3) Estimated GFR >60 mL/min Estimated GFR- >60 mL/min Note: Persistent reduction over 3 months in eGFR<60 mL/min/1.73 m2 defines CKD. Patients with eGFR values>=60 mL/min/1.73 m2 may also have CKD if evidence ofpersistent proteinuria. Additional information may be foundat www.kidney.org. SODIUM 141 mmol/L (136-145) POTASSIUM 3.7 mmol/L (3.5-5.1) CHLORIDE 104 mmol/L (98-107) CARBON DIOXIDE 25 mmol/L (21-32) CALCIUM 9.4 mg/dL (8.5-10.1) TOTAL PROTEIN 6.9 g/dL (6.4-8.2) ALBUMIN 3.0 L g/dL (3.3-5.0) BILIRUBIN, TOTAL 0.3 mg/dL (0.0-1.0) ALKALINE PHOSPHATASE 83 U/L (46-116) AST (SGOT) 22 U/L (15-37) ALT (SGPT) 49 U/L (12-78) BETA HCG, QUANTITATIVE 69544 mIU/mL REFERENCE RANGE:Adult Males: <2 mIU/mLNon- Females: <6 mIU/mL Females:Approximate Approximate hCGGestational Age Range (mIU/mL) 0-1 week 0-501-2 weeks 40-3002-3 weeks 100-27151-1 weeks 500-17268-4 months 5,000-200,0002-3 months 10,000-100,0002nd trimester 3,000-50,0003rd trimester 1,000-50,000 Wet Prep: (ANAY: 11/05/2016 00:17) ( [facility] 11/05/2016 00:56) Final results SPECIMEN DESCRIPTION: ... Test Result Flag Units (Reference) WET MOUNT CLUE CELLS:: NONE EPITHELIAL CELLS: FEW -- SOURCE?: CERVIX WHITE BLOOD CELLS: RARE TRICHOMONAS:: NONE -- YEAST:: NONE Type & Rh: (ANAY: 11/04/2016 22:31) ( [facility] [place] 11/04/2016 22:53) Final results Test Result Flag Units (Reference) PATIENT BLOOD TYPE O Positive . PROGRESS AND PROCEDURES Disposition: Discharged home in good condition. Condition: good. CLINICAL IMPRESSION Mild chronic anemia. Mild vaginal bleeding. Ultrasound was not performed to determine location because the patient had a previously documented intrauterine . No menorrhagia or metrorrhagia. INSTRUCTIONS Follow-up: Follow up with your doctor in about two days. Call for an appointment. Screening today revealed the patient's blood pressure to be in the hypertensive range. The patient should follow up with a primary care provider for blood pressure management. (Electronically signed by Gerald Irvin Dr. 11/05/2016 4:09)
--- NOTE | 2016-11-05 04:09 | ED MAR SUMMARY ---
..... Medication Administration Record [facility] [address] [place] [address] Patient: HODA OCHOA Visit ID: [id number] 31y, F Weight: 155.5 kg Height/Length: 65 in BMI: 57.1 ALLERGIES: Butalbital, Topiramate Start 22:31 11/04/2016 Kiya Burgess R.N., Stop 00:25 11/05/2016 Kiya Burgess R.N. Medication Administered: IV NS (SALINE), Dose: IV Fluids over 1 hour(s), Bolus: 1000 mL wide open, Dispensed: 1000 mL bag, Site: #1 right AC. Medication Ordered: IV NS : initial bolus none -, then 1000 mL/hr for X1 (NOW).
--- NOTE | 2016-11-05 04:09 | ED MED RECONCILIATION SUMMARY ---
Patient: HODA OCHOA Medication Reconciliation Report [facility] VisitID: [id number] [address] [place] [place] [address] 31y, F Registration Date/Time: 11/04/2016 Weight: 155.5 kg Height/Length: 65 in. BMI: 57.1 ALLERGIES: Butalbital, Topiramate The patient's Home Medications are listed below: THE FOLLOWING MEDICATIONS NEED TO BE RECONCILED: Aspirin Oral (81 mg) 1 tablet, daily Plus Oral 1 tablet, daily Tylenol Oral (325 mg) 1 tablet Zofran ODT Oral 4 mg The source(s) of the original Home Medication information: Not obtained. The following Medications were given to the patient in the Emergency Department: IV NS IV Fluids bolus 1000 mL wide open, administered: 11/04/2016 10:31:00 PM The following Medications were prescribed to the patient: None.
--- NOTE | 2016-11-05 04:09 | ED DISCHARGE INSTRUCTIONS ---
Patient: HODA OCHOA General Instructions [facility] VisitID: [id number] [place] [address] 31y, F Registration Date/Time: 11/04/2016 Mild chronic anemia. Mild vaginal bleeding. Ultrasound was not performed to determine location because the patient had a previously documented intrauterine . No menorrhagia or metrorrhagia. INSTRUCTIONS Follow-up: Follow up with your doctor in about two days. Call for an appointment. Screening today revealed the patient's blood pressure to be in the hypertensive range. The patient should follow up with a primary care provider for blood pressure management. ADDITIONAL INFORMATION Anemia [Type Not Specified, Adult] Red blood cells carry oxygen to the tissues of the body. Anemia is a condition where the size or number of red blood cells in the body is reduced. Iron is needed to make red blood cells. The most common cause of anemia is iron deficiency. This may be due to: i) Blood loss (heavy menstrual periods or bleeding from the stomach or intestines); or, ii) Not eating enough iron-containing foods. Other causes of anemia include certain vitamin deficiencies, chronic kidney disease or certain other chronic illnesses. Anemia causes a feeling of being tired and run down. When anemia becomes severe, the skin becomes pale and there is shortness of breath with exertion. Headaches, dizziness, leg cramps with exertion, drowsiness and fatigue are other common symptoms. Home Care: If you are having symptoms of anemia listed above: -- Do not overexert yourself. -- Talk to your doctor before flying on an airplane or traveling to high altitudes. Follow Up with your doctor as advised by our staff. Additional blood testing may be required to determine the exact cause of your anemia. If testing was done on this visit, it may take several days to get all of the results. You may call this facility or follow up with your own doctor to get the results. Get Prompt Medical Attention if any of the following occur: -- Shortness of breath or chest pain -- Worsening of dizziness, fainting -- Vomiting blood or passing red or black-colored stool You have been given the following additional information: Anemia, Type Not Specified (Adult) (Electronically signed by Gerald Irvin Dr. 11/05/2016 4:09)
--- NOTE | 2016-11-05 04:09 | ED MAR SUMMARY ---
..... Medication Administration Record [facility] [address] [place] [address] Patient: HODA OCHOA Visit ID: [id number] 31y, F Weight: 155.5 kg Height/Length: 65 in BMI: 57.1 ALLERGIES: Butalbital, Topiramate Start 22:31 11/04/2016 Kiya Burgess R.N., Stop 00:25 11/05/2016 Kiya Burgess R.N. Medication Administered: IV NS (SALINE), Dose: IV Fluids over 1 hour(s), Bolus: 1000 mL wide open, Dispensed: 1000 mL bag, Site: #1 right AC. Medication Ordered: IV NS : initial bolus none -, then 1000 mL/hr for X1 (NOW).
--- NOTE | 2016-11-05 04:09 | ED DISCHARGE INSTRUCTIONS ---
Patient: HODA OCHOA General Instructions [facility] VisitID: [id number] [place] [address] 31y, F Registration Date/Time: 11/04/2016 Mild chronic anemia. Mild vaginal bleeding. Ultrasound was not performed to determine location because the patient had a previously documented intrauterine . No menorrhagia or metrorrhagia. INSTRUCTIONS Follow-up: Follow up with your doctor in about two days. Call for an appointment. Screening today revealed the patient's blood pressure to be in the hypertensive range. The patient should follow up with a primary care provider for blood pressure management. ADDITIONAL INFORMATION Anemia [Type Not Specified, Adult] Red blood cells carry oxygen to the tissues of the body. Anemia is a condition where the size or number of red blood cells in the body is reduced. Iron is needed to make red blood cells. The most common cause of anemia is iron deficiency. This may be due to: i) Blood loss (heavy menstrual periods or bleeding from the stomach or intestines); or, ii) Not eating enough iron-containing foods. Other causes of anemia include certain vitamin deficiencies, chronic kidney disease or certain other chronic illnesses. Anemia causes a feeling of being tired and run down. When anemia becomes severe, the skin becomes pale and there is shortness of breath with exertion. Headaches, dizziness, leg cramps with exertion, drowsiness and fatigue are other common symptoms. Home Care: If you are having symptoms of anemia listed above: -- Do not overexert yourself. -- Talk to your doctor before flying on an airplane or traveling to high altitudes. Follow Up with your doctor as advised by our staff. Additional blood testing may be required to determine the exact cause of your anemia. If testing was done on this visit, it may take several days to get all of the results. You may call this facility or follow up with your own doctor to get the results. Get Prompt Medical Attention if any of the following occur: -- Shortness of breath or chest pain -- Worsening of dizziness, fainting -- Vomiting blood or passing red or black-colored stool You have been given the following additional information: Anemia, Type Not Specified (Adult) (Electronically signed by Gerald Irvin Dr. 11/05/2016 4:09)
--- NOTE | 2016-11-05 04:09 | ED MED RECONCILIATION SUMMARY ---
Patient: HODA OCHOA Medication Reconciliation Report [facility] VisitID: [id number] [address] [place] [address] 31y, F Registration Date/Time: 11/04/2016 Weight: 155.5 kg Height/Length: 65 in. BMI: 57.1 ALLERGIES: Butalbital, Topiramate The patient's Home Medications are listed below: THE FOLLOWING MEDICATIONS NEED TO BE RECONCILED: Aspirin Oral (81 mg) 1 tablet, daily Plus Oral 1 tablet, daily Tylenol Oral (325 mg) 1 tablet Zofran ODT Oral 4 mg The source(s) of the original Home Medication information: Not obtained. The following Medications were given to the patient in the Emergency Department: IV NS IV Fluids bolus 1000 mL wide open, administered: 11/04/2016 10:31:00 PM The following Medications were prescribed to the patient: None.
== END 2016-11-05 01:15 | disposition home or self-care (01) ==
LOC: ED SRH 20:50
DX: O46.92 Antepartum hemorrhage, unspecified, second trimester (principal); O99.012 Anemia complicating pregnancy, second trimester; Z3A.16 16 weeks gestation of pregnancy
CPT/HCPCS: 90001; 90004; 90100; 90155; 90195; 90197; 91227; 91228; 95059